=== PATIENT | female | born 1965 | race African-American/Black ===

== ENCOUNTER 2024-09-14 17:06 | Inpatient (IN) | payer MEDICAID, OTHER ==
[~2024-09-14] VITALS: Ht 172.7 cm; Wt 130.8 kg
[2024-09-14] MEDS ORDERED: IPRATROPIUM BROMIDE (0.02%) 0.5MG/2.5ML NEB HHN STA (17:55)
[2024-09-14] MEDS ORDERED: ALBUTEROL (0.083%) 2.5MG/3ML NEB HHN SCH ×2 (18:00→21:30)
[2024-09-14] MEDS: METHYLPREDNISOLONE SOD SUCC 125MG/2ML (ACT-O-VIAL) IV STA (18:20)
[2024-09-14 18:21] LABS: BG DEOXYHEMOGLOBIN 2.1 % (0.0-5.0); BG FRACTION INSPIRED OXYGEN 3.5; BG HCO3 ACT 26.8 mmol/L (21.0-28.0); BG METHEMOGLOBIN 0.3 % (0.5-1.5); BG OXYGEN SATURATION 97.9 % (94.0-98.0); BG OXYHEMOGLOBIN 96.6 % (94.0-98.0); BG PCO2 42.7 mmHg (32.0-45.0); BG PH 7.416 (7.350-7.450); BG PO2 101.1 mmHg (83.0-108.0); BG SAMPLE SITE RIGHT RADIAL; BG TOTAL HEMOGLOBIN 14.8 g/dL (12.0-16.0); BG VENT MODE NASAL CANNULA
[2024-09-14 18:22] LABS: BASOPHILS % 0.8 % (0.0-2.0); EOSINOPHILS % 2.5 % (0.0-5.0); HEMATOCRIT. 43.9 % (36.0-48.0); HEMOGLOBIN. 14.4 g/dL (12.0-16.0); LYMPHOCYTES % 45.8 % (20.0-50.0); MEAN CORPUSCULAR HEMOGLOBIN 29.7 pg (28.0-32.0); MEAN CORPUSCULAR HGB CONC 32.8 g/dL (31.0-37.0); MEAN CORPUSCULAR VOLUME 90.4 fL (81.0-99.0); MEAN PLATELET VOLUME 8.1 fl (7.4-10.4); MONOCYTES % 8.2 % (2.0-8.0); NEUTROPHILS % 42.7 % (40.0-76.0); PLATELET 199 x1000/uL (130-400); RED BLOOD CELL COUNT 4.86 mill/uL (4.2-5.4); RED CELL DISTRIBUTION WIDTH 14.2 % (11.6-14.6); WHITE BLOOD COUNT 4.3 x1000/uL (4.5-11.0)
[2024-09-14 18:32] LABS: CHLORIDE 108 mEq/L (98-107); POTASSIUM 3.4 mEq/L (3.5-5.1); SODIUM 142 mEq/L (136-145)
[2024-09-14 18:33] LABS: CALCIUM 9.2 mg/dL (8.7-10.4); CARBON DIOXIDE 26 mEq/L (21-32)
[2024-09-14 18:38] LABS: CREATININE 0.9 mg/dL (0.6-1.0); GLUCOSE 194 mg/dL (70-105); UREA NITROGEN BLOOD 9 mg/dL (9-23)
[2024-09-14 19:15] LABS: TROPONIN I HIGH SENSITIVITY < 4 ng/L (3.0-34)
[2024-09-14] MEDS ORDERED: IPRATROPIUM BROMIDE (0.02%) 0.5MG/2.5ML NEB HHN NR (21:30)
[2024-09-14 22:59] VITALS: BP 130/73; PULSE 76; RESP 22; TEMP 36.9474; O2SAT 98
[2024-09-14 23:00] VITALS: BP 130/73; PULSE 76; RESP 22; TEMP 36.974
[2024-09-14] MEDS: BLOOD SUGAR DIAGNOSTIC STRIP TEST SCH (23:26)
[2024-09-14] MEDS ORDERED: DEXTROSE 50% WATER 50ML SYRINGE IV PRN (23:45)
[2024-09-15] VITALS (8 sets, daily range): BP systolic 118–131; BP diastolic 76–81; PULSE 62–79; RESP 16–25; TEMP 36.33624–36.72516; O2SAT 92–98
[2024-09-15] MEDS: BUDESONIDE 0.5MG/2ML NEB HHN SCH
[2024-09-15] MEDS: METHYLPREDNISOLONE SOD SUCC 40MG/ML (ACT-O-VIAL) IV SCH (00:30)
[2024-09-15] MEDS: INSULIN LISPRO 100 UNITS/ML SUBCUT SCH (00:31)
[2024-09-15] MEDS: INSULIN GLARGINE 100 UNITS/ML SUBCUT SCH (00:32)
[2024-09-15] MEDS: PANTOPRAZOLE 40MG DR TABLET PO SCH (07:13)
[2024-09-15] MEDS ORDERED: INSULIN SQ (08:10)
[2024-09-15] MEDS ORDERED: BUPR75TA8 PO (08:10)
[2024-09-15] MEDS: ENOXAPARIN 40MG/0.4ML SYR SUBCUT SCH (08:20)
[2024-09-15] MEDS ORDERED: BUPROPION HCL 75MG TABLET PO SCH (09:00)
[2024-09-15 11:35] LABS: *AMPHETAMINES SCREEN URINE NEGATIVE (NEGATIVE); *BARBITURATES SCREEN URINE NEGATIVE (NEGATIVE); *BENZODIAZEPINES SCREEN URINE NEGATIVE (NEGATIVE); *COCAINE SCREEN URINE PRESUMPTIVE POSITIVE (NEGATIVE); CANNABINOID URINE SCREEN NEGATIVE (NEGATIVE); ECSTASY MDMA SCREEN URINE NEGATIVE (NEGATIVE); METHADONE URINE SCREEN NEGATIVE (NEGATIVE); OPIATES URINE SCREEN NEGATIVE (NEGATIVE); PHENCYCLIDINE URINE SCREEN NEGATIVE (NEGATIVE)
[2024-09-15 13:50] LABS: BASOPHILS % 0.2 % (0.0-2.0); HEMOGLOBIN. 13.6 g/dL (12.0-16.0); LYMPHOCYTES % 29.3 % (20.0-50.0); MEAN CORPUSCULAR HEMOGLOBIN 29.6 pg (28.0-32.0); MEAN CORPUSCULAR HGB CONC 32.4 g/dL (31.0-37.0); MEAN CORPUSCULAR VOLUME 91.6 fL (81.0-99.0); MEAN PLATELET VOLUME 8.2 fl (7.4-10.4); MONOCYTES % 5.4 % (2.0-8.0); NEUTROPHILS % 65.1 % (40.0-76.0); PLATELET 219 x1000/uL (130-400); RED BLOOD CELL COUNT 4.58 mill/uL (4.2-5.4); RED CELL DISTRIBUTION WIDTH 14.1 % (11.6-14.6); WHITE BLOOD COUNT 5.2 x1000/uL (4.5-11.0)
[2024-09-15 13:51] LABS: CALCIUM 9.9 mg/dL (8.7-10.4); CARBON DIOXIDE 23 mEq/L (21-32); CHLORIDE 106 mEq/L (98-107); POTASSIUM 4.3 mEq/L (3.5-5.1); SODIUM 137 mEq/L (136-145)
[2024-09-15 13:55] LABS: CREATINE KINASE MB FRACTION 1.6 ng/mL (0.5-3.6); GLUCOSE 360 mg/dL (70-105)
[2024-09-15 13:56] LABS: LDL CHOLESTEROL 145 mg/dL (5-100)
[2024-09-15 13:57] LABS: ALANINE AMINOTRANSFERASE 22 IU/L (10-49); ALBUMIN 4.1 g/dL (3.2-4.8); ASPARTATE AMINOTRANSFERASE 22 IU/L (<34); BILIRUBIN TOTAL 0.5 mg/dL (0.1-1.0); CHOLESTEROL 197 mg/dL (<200); CREATINE KINASE 122 IU/L (34-145); HDL CHOLESTEROL 25 mg/dL (>65); PROTEIN TOTAL 7.1 g/dL (6.0-8.3); TRIGLYCERIDE 177 mg/dL (0-150); UREA NITROGEN BLOOD 15 mg/dL (9-23)
[2024-09-15 14:20] LABS: TROPONIN I HIGH SENSITIVITY < 4 ng/L (3.0-34)
[2024-09-15 18:37] LABS: CREATINE KINASE MB FRACTION 1.8 ng/mL (0.5-3.6)
[2024-09-15 18:38] LABS: CREATINE KINASE 114 IU/L (34-145)
[2024-09-15 18:40] LABS: TROPONIN I HIGH SENSITIVITY < 4 ng/L (3.0-34)
[2024-09-15] MEDS: IPRATROPIUM/ALBUTEROL 0.5-3(2.5)MG/3ML NEB HHN PRN (21:02)
[2024-09-16] VITALS (9 sets, daily range): BP systolic 113–129; BP diastolic 66–88; PULSE 68–80; RESP 19–26; TEMP 36.50292–36.89184; O2SAT 94–100
[2024-09-16 08:00] LABS: BASOPHILS % 0.4 % (0.0-2.0); HEMATOCRIT. 39.7 % (36.0-48.0); HEMOGLOBIN. 12.9 g/dL (12.0-16.0); LYMPHOCYTES % 12.6 % (20.0-50.0); MEAN CORPUSCULAR HEMOGLOBIN 29.7 pg (28.0-32.0); MEAN CORPUSCULAR HGB CONC 32.6 g/dL (31.0-37.0); MEAN CORPUSCULAR VOLUME 91.3 fL (81.0-99.0); MEAN PLATELET VOLUME 8.7 fl (7.4-10.4); MONOCYTES % 4.1 % (2.0-8.0); NEUTROPHILS % 82.9 % (40.0-76.0); PLATELET 211 x1000/uL (130-400); RED BLOOD CELL COUNT 4.35 mill/uL (4.2-5.4); RED CELL DISTRIBUTION WIDTH 13.7 % (11.6-14.6); WHITE BLOOD COUNT 10.8 x1000/uL (4.5-11.0)
[2024-09-16 08:01] LABS: CARBON DIOXIDE 24 mEq/L (21-32); CHLORIDE 107 mEq/L (98-107); POTASSIUM 4.3 mEq/L (3.5-5.1); SODIUM 137 mEq/L (136-145)
[2024-09-16 08:03] LABS: CALCIUM 9.3 mg/dL (8.7-10.4)
[2024-09-16 08:06] LABS: CREATININE 1.1 mg/dL (0.6-1.0)
[2024-09-16 08:08] LABS: UREA NITROGEN BLOOD 18 mg/dL (9-23)
[2024-09-16 08:15] LABS: GLUCOSE 428 mg/dL (70-105)
[2024-09-16] MEDS: BENZONATATE 100MG CAPSULE PO PRN (08:17)
[2024-09-16] MEDS: ACETAMINOPHEN 325MG TABLET PO PRN (08:37)
[2024-09-16] MEDS: BUPROPION HCL 75MG TABLET PO SCH (11:35)
[2024-09-16] MEDS: INSULIN GLARGINE 100 UNITS/ML SUBCUT SCH (11:40)
[2024-09-17] VITALS (10 sets, daily range): BP systolic 117–134; BP diastolic 66–90; PULSE 68–91; RESP 15–22; TEMP 36.50292–36.83628; O2SAT 95–100
[2024-09-17 08:19] LABS: CALCIUM 9.3 mg/dL (8.7-10.4); CARBON DIOXIDE 26 mEq/L (21-32); CHLORIDE 106 mEq/L (98-107); POTASSIUM 3.8 mEq/L (3.5-5.1); SODIUM 142 mEq/L (136-145)
[2024-09-17 08:25] LABS: CREATININE 0.9 mg/dL (0.6-1.0); GLUCOSE 257 mg/dL (70-105); UREA NITROGEN BLOOD 17 mg/dL (9-23)
[2024-09-17] MEDS: FAMOTIDINE 20MG TABLET PO SCH (08:39)
[2024-09-17 09:29] LABS: BASOPHILS % 0.1 % (0.0-2.0); HEMATOCRIT. 38.7 % (36.0-48.0); HEMOGLOBIN. 12.7 g/dL (12.0-16.0); LYMPHOCYTES % 17.5 % (20.0-50.0); MEAN CORPUSCULAR HEMOGLOBIN 29.4 pg (28.0-32.0); MEAN CORPUSCULAR HGB CONC 32.7 g/dL (31.0-37.0); MEAN CORPUSCULAR VOLUME 89.8 fL (81.0-99.0); MONOCYTES % 6.2 % (2.0-8.0); NEUTROPHILS % 76.2 % (40.0-76.0); PLATELET 219 x1000/uL (130-400); RED BLOOD CELL COUNT 4.31 mill/uL (4.2-5.4); RED CELL DISTRIBUTION WIDTH 13.9 % (11.6-14.6); WHITE BLOOD COUNT 10.2 x1000/uL (4.5-11.0)
[2024-09-17] MEDS: METHYLPREDNISOLONE SOD SUCC 40MG/ML (ACT-O-VIAL) IV SCH (17:53)
[2024-09-18] VITALS: BP 124/63; PULSE 72; RESP 17; TEMP 36.55848; O2SAT 100
[2024-09-18 04:00] VITALS: BP 139/81; PULSE 67; RESP 20; TEMP 36.44736; O2SAT 100
[2024-09-18 08:00] VITALS: BP 119/85; PULSE 84; RESP 18; TEMP 36.83628; O2SAT 100
[2024-09-18] MEDS: METHYLPREDNISOLONE SOD SUCC 125MG/2ML (ACT-O-VIAL) IV SCH (11:56)
[2024-09-18 12:00] VITALS: BP 120/89; PULSE 89; RESP 18; TEMP 36.89184; O2SAT 100
[2024-09-18 16:00] VITALS: BP 116/85; PULSE 78; RESP 18; TEMP 36.6696; O2SAT 100
[2024-09-18 20:39] VITALS: BP 134/89; PULSE 88; RESP 20; TEMP 36.50292; O2SAT 95
[2024-09-18] MEDS: ENOXAPARIN 40MG/0.4ML SYR SUBCUT SCH (20:47)
[2024-09-19] VITALS (8 sets, daily range): BP systolic 129–148; BP diastolic 72–92; PULSE 59–80; RESP 5–30; TEMP 36.44736–36.83628; O2SAT 93–98
[2024-09-19] MEDS: INSULIN GLARGINE 100 UNITS/ML SUBCUT SCH (09:33)
[2024-09-19] MEDS: THEOPHYLLINE ANHYDROUS 80 MG/15 ML 120ML PO SCH (14:40)
[2024-09-19] MEDS: METHYLPREDNISOLONE SOD SUCC 40MG/ML (ACT-O-VIAL) IV SCH (14:40)
[2024-09-19] MEDS: ALBUTEROL (0.083%) 2.5MG/3ML NEB HHN SCH (20:55)
[2024-09-20] VITALS (11 sets, daily range): BP systolic 110–142; BP diastolic 59–84; PULSE 68–93; RESP 10–29; TEMP 36.83628–37.2252; O2SAT 92–100
[2024-09-20] MEDS: PREDNISONE 20MG TABLET PO SCH (14:10)
[2024-09-21] VITALS (7 sets, daily range): BP systolic 106–141; BP diastolic 57–86; PULSE 76–106; RESP 20–30; TEMP 37.2252–38.6142; O2SAT 92–97
[2024-09-21 12:52] LABS: HEMATOCRIT. 40.5 % (36.0-48.0); HEMOGLOBIN. 13.2 g/dL (12.0-16.0); MEAN CORPUSCULAR HEMOGLOBIN 29.1 pg (28.0-32.0); MEAN CORPUSCULAR HGB CONC 32.6 g/dL (31.0-37.0); MEAN CORPUSCULAR VOLUME 89.5 fL (81.0-99.0); PLATELET 226 x1000/uL (130-400); RED BLOOD CELL COUNT 4.52 mill/uL (4.2-5.4); RED CELL DISTRIBUTION WIDTH 14.2 % (11.6-14.6); WHITE BLOOD COUNT 7.6 x1000/uL (4.5-11.0)
[2024-09-21 12:54] LABS: CHLORIDE 104 mEq/L (98-107); POTASSIUM 3.7 mEq/L (3.5-5.1); SODIUM 139 mEq/L (136-145)
[2024-09-21 12:55] LABS: CARBON DIOXIDE 28 mEq/L (21-32)
[2024-09-21 12:56] LABS: CALCIUM 9.1 mg/dL (8.7-10.4)
[2024-09-21 13:01] LABS: CREATININE 0.9 mg/dL (0.6-1.0); DIFFERENTIAL COMMENT 1; GLUCOSE 150 mg/dL (70-105); UREA NITROGEN BLOOD 11 mg/dL (9-23)
[2024-09-21] MEDS: INSULIN GLARGINE 100 UNITS/ML SUBCUT SCH (22:46)
[2024-09-22] VITALS (9 sets, daily range): BP systolic 103–129; BP diastolic 60–73; PULSE 81–95; RESP 16–25; TEMP 37.00296–39.22536; O2SAT 92–95
[2024-09-22] MEDS ORDERED: AZITHROMYCIN 500 MG in SODIUM CHLORIDE 0.9% 250 ML IV SCH (07:45)
[2024-09-22 08:16] LABS: CARBON DIOXIDE 28 mEq/L (21-32); CHLORIDE 104 mEq/L (98-107); POTASSIUM 3.9 mEq/L (3.5-5.1); SODIUM 141 mEq/L (136-145)
[2024-09-22 08:17] LABS: CALCIUM 8.8 mg/dL (8.7-10.4)
[2024-09-22 08:22] LABS: CREATININE 0.9 mg/dL (0.6-1.0); GLUCOSE 130 mg/dL (70-105); UREA NITROGEN BLOOD 11 mg/dL (9-23)
[2024-09-22 08:23] LABS: HEMATOCRIT. 40.5 % (36.0-48.0); HEMOGLOBIN. 13.2 g/dL (12.0-16.0); MEAN CORPUSCULAR HEMOGLOBIN 29.5 pg (28.0-32.0); MEAN CORPUSCULAR HGB CONC 32.5 g/dL (31.0-37.0); MEAN CORPUSCULAR VOLUME 90.5 fL (81.0-99.0); MEAN PLATELET VOLUME 8.6 fl (7.4-10.4); PLATELET 199 x1000/uL (130-400); RED BLOOD CELL COUNT 4.47 mill/uL (4.2-5.4); RED CELL DISTRIBUTION WIDTH 14.3 % (11.6-14.6); WHITE BLOOD COUNT 6.9 x1000/uL (4.5-11.0)
[2024-09-22 08:25] LABS: DIFFERENTIAL COMMENT 1
[2024-09-22] MEDS: CEFTRIAXONE 1GM/50ML 50 ML IV NR (10:23)
[2024-09-22] MEDS: AZITHROMYCIN 500 MG in SODIUM CHLORIDE 0.9% 250 ML IV SCH (10:26)
[2024-09-22] MEDS ORDERED: GUAIFENESIN-DM 200MG-20MG/10ML UDC PO PRN (11:00)
[2024-09-22 15:33] LABS: PLATELET ESTIMATE NORMAL
[2024-09-22 16:47] LABS: PLATELET ESTIMATE NORMAL
[2024-09-23] VITALS (7 sets, daily range): BP systolic 101–121; BP diastolic 75–84; PULSE 94–100; RESP 17–26; TEMP 36.6696–37.7808; O2SAT 91–96
[2024-09-23 06:47] LABS: CARBON DIOXIDE 26 mEq/L (21-32); CHLORIDE 104 mEq/L (98-107); SODIUM 138 mEq/L (136-145)
[2024-09-23 06:48] LABS: CALCIUM 8.8 mg/dL (8.7-10.4)
[2024-09-23 06:51] LABS: CREATININE 0.9 mg/dL (0.6-1.0)
[2024-09-23 06:53] LABS: GLUCOSE 196 mg/dL (70-105); UREA NITROGEN BLOOD 10 mg/dL (9-23)
[2024-09-23 07:44] LABS: BASOPHILS % 0.4 % (0.0-2.0); HEMATOCRIT. 38.7 % (36.0-48.0); HEMOGLOBIN. 12.7 g/dL (12.0-16.0); LYMPHOCYTES % 28.1 % (20.0-50.0); MEAN CORPUSCULAR HEMOGLOBIN 29.6 pg (28.0-32.0); MEAN CORPUSCULAR VOLUME 89.7 fL (81.0-99.0); MEAN PLATELET VOLUME 8.2 fl (7.4-10.4); MONOCYTES % 8.3 % (2.0-8.0); NEUTROPHILS % 61.2 % (40.0-76.0); PLATELET 198 x1000/uL (130-400); RED BLOOD CELL COUNT 4.31 mill/uL (4.2-5.4); RED CELL DISTRIBUTION WIDTH 14.3 % (11.6-14.6)
[2024-09-23] MEDS ORDERED: BENZ100C86 MT (09:53)
[2024-09-23] MEDS ORDERED: GUAI10LI14 PO (09:53)
[2024-09-23] MEDS ORDERED: AZIT500T8 MT (09:53)
[2024-09-23] MEDS ORDERED: ALBU18HF2 IH (09:54)
== END 2024-09-23 12:00 | disposition home or self-care (01) | DRG 139 ==
LOC: ER 17:06 → 3WST 23:13
PROVIDERS: ADMIT Internal Medicine; ATTEND Internal Medicine
DX: J18.9 Pneumonia, unspecified organism (principal); J96.01 Acute respiratory failure with hypoxia; J44.1 Chronic obstructive pulmonary disease with (acute) exacerbation; F17.210 Nicotine dependence, cigarettes, uncomplicated; J96.02 Acute respiratory failure with hypercapnia; E11.65 Type 2 diabetes mellitus with hyperglycemia; J44.0 Chronic obstructive pulmonary disease with (acute) lower respiratory infection; E87.6 Hypokalemia; F19.10 Other psychoactive substance abuse, uncomplicated; F14.90 Cocaine use, unspecified, uncomplicated; Z79.4 Long term (current) use of insulin; Z88.5 Allergy status to narcotic agent
CPT/HCPCS: 36415; 36600; 71045; 80048; 80053; 80061; 80305; 82375; 82550; 82553; 82805; 82962; 83036; 83735; 83880; 84145; 84484; 85025; 93005; 93306; 93970; 94070; 94640; 94664; 99285; A6261; J0456; J0696; J1650; J1815; J2919; J2920; J7050; J7512; J7626